=== PATIENT | female | born 1995 | race Caucasian/White ===

== ENCOUNTER 2016-12-23 04:40 | Emergency (ER) | payer SELFPAY ==
[~2016-12-23] VITALS: Ht 157.5 cm; Wt 86.2 kg
--- OUTSIDE RECORDS SUMMARY | 2016-12-23 04:50 | XMS REPORT | Continuity of Care Document ---
Author Author [facility] Organization [facility] Address Unknown Phone Unavailable Care Team Providers Care Storeroom Supervisor Name Role Phone Unverified, Unverified PCP Unavailable Source Comments Some departments are not documenting in the electronic medical record. If you do not see the information that you expected, contact Release of Information in the Health Information Management department at [phone] for further assistance in locating additional records.[facility] Active Allergies and Adverse Reactions Not on File Current Medications Not on file Active Problems Not on file Social History Tobacco Use Types Packs/Day Years Used Date Never Assessed Plan of Care Health Maintenance Due Date Last Done Comments Physical (Comprehensive) 2002 Exam Hpv Vaccines (#1) 2006 Pertussis Vaccine 2006 Tetanus Vaccine 2012 Cervical Cancer Screening 2016 Influenza Vaccine 04/25/2017 Results from Last 3 Months Not on file
[2016-12-23 05:27] LABS: BILIRUBIN,URINE Negative (Negative); COLOR,URINE Yellow; GLUCOSE, URINE (UA) Negative (Negative); LEUKOCYTE ESTERASE ,URINE 1+ (Negative); PH,URINE 6.5 (5.0 - 8.0)
[2016-12-23 06:07] LABS: CLARITY,URINE Slightly Cloudy
[2016-12-23 06:17] LABS: HCG,QUALITATIVE URINE Negative (Negative); RBC,URINE 0-2 /HPF; URINE CENTRIFUGED VOLUME 12 mL
[2016-12-23] MEDS ORDERED: CEPHALEXIN 500 MG (KEFLEX) CAPSULE PO ONE (06:25)
[2016-12-23] MEDS ORDERED: CEPH-331 PO (06:26)
[2016-12-23 06:41] VITALS: BP 121/70
== END 2016-12-23 06:43 | disposition home or self-care (01) ==
LOC: ED 04:46
DX: N39.0 Urinary tract infection, site not specified (principal); R11.2 Nausea with vomiting, unspecified
CPT/HCPCS: 81003; 81015; 81025; 87088; 99282